=== PATIENT | female | born 1980 | race Caucasian/White ===

== ENCOUNTER 2017-08-03 14:23 | Inpatient (IN) ==
[2017-08-03] MEDS ORDERED: ASPIRIN CHEWABLE PO STA ×2 (14:41→14:46)
[2017-08-03] MEDS ORDERED: POTASSIUM CHLORIDE PREMIX RUN 10 MEQ in PREMIX 100 ML WATER 1 BAG IV STA (15:38)
--- NOTE | 2017-08-03 15:45 | ED.PDOC ---
General ED Provider: Dr. SMILEY JUARES Chief Complaint: Chest Pain Stated Complaint: CHEST PAIN Time Seen by Physician: 14:30 (RIGHT SIDED CHEST PAIN ) Mode of Arrival: Walk-In Information Source: Patient Exam Limitations: No limitations Primary Care Provider: BEE MONTENEGRO Nursing and Triage Documentation Reviewed and Agree: Yes Reviewed sepsis parameters & appropriate labs ordered?: Yes System Inflammatory Response Syndrome: Not Applicable Sepsis Protocol: For patient's 13 years and over: Temp is 96.8 and below OR 101 and greater Pulse >90 BPM Resp >20/minute Acutely Altered Mental Status Are patient's symptoms suggestive of a new infection, such as: -Pneumonia -Skin, Soft Tissue -Endocarditis -UTI -Bone, Joint Infection -Implantable Device -Acute Abdominal Infection -Wound Infection -Meningitis -Blood Stream Catheter Infection -Unknown System Inflammatory Response Syndrome: Not Applicable Cardiovascular Complaint Exam - Chest Pain Complaint/Exam Onset: Sudden Duration: THIS MORNING Symptoms Are: Still present Length of Chest Pain Episodes: 30 MIN Initial Severity: Moderate Current Severity: None Location: Reports: Discrete, Right anterior Pain Radiates: Reports: None Character: Reports: Dull Aggravating: Reports: None Alleviating: Reports: None Associated Signs and Symptoms: Denies: Diaphoresis, Nausea, Vomiting, Fever, Palpitations, Cough, Hemoptysis, Back pain, Abdominal pain, Dizziness, Short of air, Calf pain, Calf swelling Related History: Reports: Similar episode Related Surgical History: Reports: None History of Healthcare-Acquired Pneumonia: Reports: No AMI/ACS Risk Factors: Reports: None TAD Risk Factors: Reports: None Pulmonary Embolism Risk Factors: Reports: None Prior Care for this Complaint: No Recent Stress Test: No Recent Echo/LV Function: No JVD Present: No Subcutaneous Emphysema Present: No Diminshed Breath Sounds: No Reproducible Chest Wall Pain: No Bilateral Pulses Present: No Unequal Pulses Noted: No If Risk Factors for AMI/ACS Consider: EKG, Cardiac Enzymes Differential Diagnoses: GI Diseasae, Lower Resp. Infection Quality Indicators For Acute CT or Cardiac Chest Pain: EKG in 10min. Quality Indicator For Non-Traumatic Chest Pain/Syncope: EKG Performed Review of Systems - Review Of Systems Constitutional: Reports: No symptoms Eyes: Reports: No symptoms Ears, Nose, Mouth, Throat: Reports: No symptoms Respiratory: Reports: No symptoms Cardiac: Reports: Chest pain GI: Reports: No symptoms : Reports: No symptoms Musculoskeletal: Reports: No symptoms Skin: Reports: No symptoms Neurological: Reports: No symptoms Endocrine: Reports: No symptoms Hematologic/Lymphatic: Reports: No symptoms All Other Systems: Reviewed and Negative Past Medical History - Past Medical History Previously Healthy: Yes Endocrine: Reports: Hypothyroid Cardiovascular: Reports: None Respiratory: Reports: None Hematological: Reports: None Gastrointestinal: Reports: None Genitourinary: Reports: None Neuro/Psych: Reports: None Musculoskeletal: Reports: None Cancer: Reports: None Last Menstrual Period: 2016 - Surgical History General Surgical History: Reports: None - Family History Family History: Reports: None - Social History Smoking Status: Current some day smoker, Light tobacco smoker Hx Substance Use: No Alcohol Screening: Occasionally Physical Exam - Physical Exam Appearance: Well-appearing, No pain distress, Well-nourished Ill-appearing: Mild Pain Distress: Mild Eyes: AMANDA, EOMI, Conjunctiva clear ENT: Ears normal, Nose normal, Oropharynx normal Respiratory: Airway patent, Breath sounds clear, Breath sounds equal, Respirations nonlabored Cardiovascular: RRR, Pulses normal, No rub, No murmur GI/: Soft, Nontender, No masses, Bowel sounds normal, No Organomegaly Musculoskeletal: Normal strength, ROM intact, No edema, No calf tenderness Skin: Warm, Dry, Normal color Neurological: Sensation intact, Motor intact, Reflexes intact, Cranial nerves intact, Alert, Oriented Psychiatric: Affect appropriate, Mood appropriate Interpretation - Treasury Associate Rate: Normal Rhythm: Sinus Ectopy: None - EKG Interpretation Rate: Normal Rhythm: Sinus Ectopy: None [place]: NL ST Segment: Normal Physician Notification - Case Discussed Physician Notified: PAUL Time of Notification: 16:00 Critical Care Note - Critical Care Note Total Time (mins): 0 Course - Course Hematology/Chemistry: 08/04/17 04:15 08/04/17 04:15 Orders, Labs, Meds: Lab Review 08/03/17 08/03/17 08/03/17 14:55 14:55 14:55 WBC 5.44 RBC 4.23 Hgb 12.7 Hct 36.0 L MCV 85.1 MCH 30.0 MCHC 35.3 RDW Coeff of Yocasta 13.4 Plt Count 208 Immature Gran % (Auto) 0.4 Neut % (Auto) 46.7 Lymph % (Auto) 39.0 [place] % (Auto) 11.8 H Eos % (Auto) 1.5 Baso % (Auto) 0.6 Immature Gran # (Auto) 0.0 Neut # 2.6 Lymph # 2.1 [place] # 0.6 Eos # 0.1 Baso # 0.0 D-Dimer (Manual) Sodium 144 Potassium 2.7 L* Chloride 112 H Carbon Dioxide 24 Anion Gap 10.7 BUN 8 Creatinine 0.64 Estimated GFR (MDRD) 103.00 BUN/Creatinine Ratio 12.50 Glucose 97 Calcium 8.8 Magnesium 2.1 Total Bilirubin 0.5 AST 8 L ALT < 6 L Alkaline Phosphatase 83 Total Creatine Kinase 14 Troponin I < 0.0100 Total Protein 6.4 Albumin 3.7 Globulin 2.7 Albumin/Globulin Ratio 1.37 TSH 1.000 Free T4 1.08 Serum , Qual 08/03/17 08/03/17 14:55 14:55 WBC RBC Hgb Hct MCV MCH MCHC RDW Coeff of Yocasta Plt Count Immature Gran % (Auto) Neut % (Auto) Lymph % (Auto) [place] % (Auto) Eos % (Auto) Baso % (Auto) Immature Gran # (Auto) Neut # Lymph # [place] # Eos # Baso # D-Dimer (Manual) 302.65 Sodium Potassium Chloride Carbon Dioxide Anion Gap BUN Creatinine Estimated GFR (MDRD) BUN/Creatinine Ratio Glucose Calcium Magnesium Total Bilirubin AST ALT Alkaline Phosphatase Total Creatine Kinase Troponin I Total Protein Albumin Globulin Albumin/Globulin Ratio TSH Free T4 Serum , Qual Negative Orders Category Date Time Status EKG-(ED ONLY) Stat CARDIO 08/03/17 14:45 Completed CBC W/ AUTO DIFF Stat LAB 08/03/17 14:55 Completed COMPREHENSIVE METABOLIC PANEL Stat LAB 08/03/17 14:55 Completed CREATINE KINASE Stat LAB 08/03/17 14:55 Completed D-DIMER Stat LAB 08/03/17 14:55 Completed FREE T4 (FREE THYROXINE) Stat LAB 08/03/17 14:55 Completed MAGNESIUM Stat LAB 08/03/17 14:55 Completed SERUM Stat LAB 08/03/17 14:55 Completed THYROID STIMULATING HORMONE Stat LAB 08/03/17 14:55 Completed TROPONIN I Stat LAB 08/03/17 14:55 Completed Aspirin [Aspirin Chewable] MEDS 08/03/17 14:46 Discontinued 324 mg PO ONCE STA Potassium Chloride [Potassium Chloride Premix Run] 10 MEDS 08/03/17 15:38 Discontinued meq Premix 100 ml Water 1 bag IV ONCE Potassium Chloride [Potassium Chloride Premix Run] 100 MEDS 08/03/17 16:50 Discontinued ml IV .STK-MED CHEST, 2 VIEWS PA & LAT Stat RADS 08/03/17 14:44 Completed Medications Discontinued Medications Generic Name Dose Route Start Last Admin Trade Name Rajesh PRN Reason Stop Dose Admin Aspirin 324 mg 08/03/17 14:46 08/03/17 15:06 Aspirin Chewable PO 08/03/17 14:47 324 mg ONCE STA Administration Potassium Chloride 10 meq/ 100 mls @ 100 mls/hr 08/03/17 15:38 08/03/17 17:21 Sterile Water IV 08/03/17 16:37 100 mls/hr ONCE STA Administration Potassium Chloride 40 meq/ 1,000 mls @ 167 mls/hr 08/03/17 17:47 08/04/17 06: 54 Sodium Chloride IV 08/03/17 23:46 Not Given ONCE ONE Potassium Chloride 40 meq 08/03/17 18:59 08/03/17 19:25 K-Dur PO 08/03/17 19:00 40 meq ONCE STA Administration Potassium Chloride 40 meq 08/03/17 22:00 08/03/17 22:22 K-Dur PO 08/03/17 22:01 40 meq ONCE ONE Administration Potassium Chloride 40 meq 08/04/17 08:00 08/04/17 08:54 K-Dur PO 40 meq BIDWM JAMAAL Administration Sodium Chloride 1 syr 08/04/17 13:00 Saline Flush IVF Q8HR JAMAAL Vital Signs: Temp Pulse Resp BP Pulse Ox 08/03/17 14:24 97.4 F L 94 H 20 143/88 H 98 GABRIELA Risk Score GABRIELA Risk Score: Risk Score Odds of by 30D 0 0.1 (0.1-0.2) 1 0.3 (0.2-0.3) 2 0.4 (0.3-0.5) 3 0.7 (0.6-0.9) 4 1.2 (1.0-1.5) 5 2.2 (1.9-2.6) 6 3.0 (2.5-3.6) 7 4.8 (3.8-6.1) Departure - Departure Time of Disposition: 04:20 Disposition: ADMITTED INPATIENT Discharge Problem: Chest pain, Hypokalemia Condition: Good Pt referred to PMD for follow-up: Yes IPMP verified?: Yes Allergies/Adverse Reactions: Allergies No Known Allergies Allergy (Unverified 08/03/17 14:30) Home Medications: Ambulatory Orders Levothyroxine Sodium [Synthroid] 200 mcg PO DAILY 08/03/17 Medroxyprogesterone Acetate [Depo-Provera] 150 mg IM DIRECTED 08/03/17 Disposition Discussed With: Patient
--- NOTE | 2017-08-03 16:13 | DI ---
EXAM: CHEST FRONTAL AND LATERAL VIEWS HISTORY: Chest pain. COMPARISON: 06/23/2017 FINDINGS: Heart size remains within normal limits. There are scattered calcifications suggesting old granulomatous disease. Mild hyperinflation. No acute infiltrates are seen. No vascular congestion. There is no consolidation, visible pleural fluid or pneumothorax. Bones reveal no acute fracture. IMPRESSION: No acute cardiopulmonary process.
[2017-08-03] MEDS ORDERED: POTASSIUM CHLORIDE PREMIX RUN 100 ML IV ONE (16:50)
[2017-08-03] MEDS: POTASSIUM CHLORIDE 40 MEQ VIAL-ADDITIVE ONLY IV ONE ×2 (17:24→17:57)
[2017-08-03] MEDS ORDERED: SODIUM CHLORIDE IV ONE (17:47)
[2017-08-03] MEDS ORDERED: POTASSIUM CHLORIDE IV ONE (17:47)
[2017-08-03] MEDS ORDERED: ADDITIVE ONLY IV ONE (17:47)
[2017-08-03 18:40] VITALS: BMI 24.1
[2017-08-03] MEDS ORDERED: K-DUR PO STA (18:59)
[2017-08-03] MEDS ORDERED: K-DUR PO ONE (22:00)
[2017-08-04] MEDS ORDERED: SODIUM CHLORIDE 1,000 ML IV ONE (06:54)
[2017-08-04] MEDS ORDERED: K-DUR PO SCH (08:00)
--- NOTE | 2017-08-04 08:49 | STRESSECHO ---
Date of Test: 08/04/17 Reason for Exam: CHEST PAIN, HYPOKALEMIA Ordering Physician: DR. RANDOLPH ENAMORADO Current Medications: DEPO-PROVERA, SYNTHROID, K DUR Physical Findings: S1, S2, NO S3 Resting EKG: SINUS RHYTHM/ NO ACUTE CHANGES Target Heart Rate: 153/181 STAGE MPH/GRADE HEART RATE BPM BLOOD PRESSURE mmhg RHYTHM S-T SEGMENT +/- UP DOWN SYMPTOMS,COMMENTS At Rest 55 108/78 SR X NONE 1 1.7/10% 123 118/64 SR X NONE 2 2.5/12% 3 3.4/14% 4 4.2/16% 5 5.0/18% Immediately after 152 154/60 SR X FATIGUE Durations of Exercise: 5:00 Maximum Heart Rate Reached: 152 Reason for Termination: FATIGUE 3 MINUTES POST EXERCISE: HR 72 BPM, BP 118/62 MMHG, SR, +/-, NO COMMENTS INTERPRETATION: 98% OXYGEN SATURATION ON ROOM AIR AT REST 1. NO EVIDENCE OF ISCHEMIA BY ST-T WAVE 2. NO CHEST PAIN OR CHEST DISCOMFORT 3. BLOOD PRESSURE RESPONSE: NORMAL 4. RARE PAC'S AND PVC'S WITH EXERCISE NORMAL LEFT VENTRICULAR CONTRACTILITY--RESTING AND POST EXERCISE MTDD
--- NOTE | 2017-08-04 08:51 | ECHOSTRESS ---
Date of Exam: 08/04/17 Ordering Physician: DR. RANDOLPH ENAMORADO Reason for Echo: CHEST PAIN, HYPOKALEMIA, STRESS TEST--NO ISCHEMIA M-Mode Normal Adult Results LV Dimensions Normal Adult Results AoV Opening excursions >1.6 LVEDD-base- 3.5-5.8 Ao root dimensions 2.0-3.7 LVESD-base- 3.1-4.6 L. Atrium dimensions 1.9-3.8 Post. Wall thickness 0.8-1.1 IV septum (thickness) 0.7-1.2 Post. Wall excursion 0.72-1.3 Septal motion Systolic motion R. Ventricular cavity 1.5-2.0 LVEF 60% Paradoxical septal wall motion 2-D: NORMAL LEFT VENTRICULAR CONTRACTILITY--RESTING AND POST EXERCISE M-MODE: MV: AV: TV: PV: CHAMBER SIZE: WALL MOTION: NORMAL LEFT VENTRICULAR CONTRACTILITY--RESTING AND POST EXERCISE PERICARDIUM: INTERPRETATION: 1. NORMAL LEFT VENTRICULAR CONTRACTILITY--RESTING AND POST EXERCISE MTDD
[2017-08-04 10:23] VITALS: BP 116/73; TEMP 98.3
--- NOTE | 2017-08-05 09:23 | CONS ---
DATE OF SERVICE: 08/04/17 SUBJECTIVE: 37 year old white female seen on consultation for chest pain. The patient's chest pain was fairly atypical right sided localized unrelated to exertion duration several days. REVIEW OF SYSTEMS: CONSTITUTIONAL: No night sweats. No fatigue, malaise, lethargy. No fever or chills. HEENT: Eyes: No visual changes. No eye pain. No eye discharge. ENT: No runny nose. No epistaxis. No sinus pain. No sore throat. No odynophagia. No ear pain. No congestion. RESPIRATORY: No cough, no congestion. No hemoptysis. CARDIOVASCULAR: No angina symptoms. No CHF symptoms. No atypical chest pain for CAD. No palpitations. No shortness of breath. GASTROINTESTINAL: No abdominal pain. No nausea or vomiting. No diarrhea or constipation. No hematemesis. No hematochezia. GENITOURINARY: No urgency. No frequency. No dysuria. No hematuria. No obstructive symptoms. No discharge. No pain. No significant abnormal bleeding. MUSCULOSKELETAL: No musculoskeletal pain. No joint swelling. No arthritis. NEUROLOGICAL: No headache. No neck pain. No syncope. No seizures. No dizziness. PSYCHIATRIC: Not anxious. No depression. No suicidal thoughts. No homicidal thoughts. SKIN: No rash. No lesions. No wounds. ENDOCRINE: No unexplained weight loss. No weight gain. HEMATOLOGIC/LYMPHATIC: No anemia. No purpura. No petechiae. No prolonged or excessive bleeding. No palpable lymph nodes. PHYSICAL EXAMINATION: GENERAL: The patient is oriented to time, place and person. HEENT: Head normocephalic, atraumatic. Eyes: Extraocular muscles are intact. Pupils are equal, round and reactive to light and accommodation. Ears: No lesions. Nose appeared normal. Throat: No exudate or erythema. NECK: Supple. No JVD, no carotid bruit. No lymphadenopathy or thyromegaly. LUNGS: Clear to auscultation. Percussion note normal. Chest symmetrical. HEART: S1, S2, no S3. No murmurs. No cyanosis or clubbing. No ascites. Pulses: Dorsalis pedis and posterior tibial pulses +1 to +2 both sides. ABDOMEN: Soft. Nontender. Bowel sounds active. No CVA tenderness. No mass felt. EXTREMITIES: No edema. Full range of motion of all extremities, equal. NEUROLOGIC: No focal deficit. Cranial nerves II through XII are grossly intact. No headache, no double vision or headache. SKIN: Not dry. Intact. Turgor - normal. LYMPHATIC: No palpable lymph nodes/no lymphedema. MUSCULOSKELETAL: Normal joints with no swelling. Muscle tone is normal. LABS: EKG sinus rhythm with no acute changes. Telemetry sinus rhythm no ST-T wave change. Cardiac markers are negative. Echocardiogram done which showed normal LV contractility, normal valves. Stress echo showed no evidence of ischemia by ST-T wave and also LV contractility resting and post exercise. The patient had few rare PAC and PVC's with exercise. The patient's lipid profile pending. The patient is an RN. ASSESSMENT: 1. Chest pain seems to be noncardiac RECOMMENDATIONS: 1. Coronary insufficiency and symptoms discussed 2. Non HDL goal would be 100-130. Discussed with the patient 3. Smoking 4. CAD risk factors discussed CONDITION: Stable MTDD
--- NOTE | 2017-08-05 09:25 | CONS ---
Michael Fuentes was seen on consult on 08/04/17: Level 5 MTDD
--- NOTE | 2017-08-11 15:47 | HP ---
CHIEF COMPLAINT: Right upper anterior chest pain. SOURCE OF HISTORY: Patient and emergency room records. Reliability good. HISTORY OF PRESENT ILLNESS: The patient was driving to work when she suddenly experienced pain in the right upper anterior chest and she then reported to work. A coworker, however, noted that she did not look good and she told them that she had chest pain and so she came to the emergency room at [facility]. The patient claimed to have had chest pain before, about two years ago and was informed that the potassium was low. She did tell the emergency room physician with regards to the chest pain related to low potassium and indeed the potassium was low at 2.7. The patient denied any accompanying symptoms such as diaphoresis, nausea, weakness or shortness of breath. She, however, described the chest pain as a heaviness or pressure. The cardiac enzymes were normal and the EKG is unremarkable. The patient, however, was admitted for observation because of the chest pain and should undergo a complete cardiac work-up. The patient was agreeable. PAST PERSONAL HISTORY: The patient is diagnosed with hypothyroidism on medication, anemia, two C-sections and ventilation tubes as a child. She is also on Depo-Provera. 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 She has some pain in the right knee. The patient was diagnosed with idiopathic thrombocytopenic purpura. FAMILY HISTORY: Sister had congestive heart failure. Mother was diagnosed with diabetes mellitus. Other members of the maternal family had COPD. SOCIAL HISTORY: The patient is , but legally . Mother is Vianca Nagel. She smokes and had been gradually decreasing the amount of cigarettes. MEDICATIONS: Prior to this admission consisted of: Dep-Provera 150 grams per cc probably every three months Levothyroxine Sodium 200 mcg daily ALLERGIES: No known drug allergies. PHYSICAL EXAMINATION: GENERAL: We have a 37 year old female seen at the emergency room and subsequently admitted to the hospital for observation and further testing because of recurrent right anterior chest pain described as heaviness. There was some tenderness initially. The patient had a similar episode before and was found to have a low potassium. The patient's work-up in the emergency room was negative for any acute myocardial injury. VITAL SIGNS: On admission had a temperature 97.4, pulse 94, blood pressure 143/ 88, respiratory rate 20, oxygen saturation 98 at room air. 5'6", 150 pounds in the emergency room and weighed 152 on the floor and measured 5'6 1/2". HEAD: Unremarkable. FACE: Symmetrical and equal with no facial weakness. Palpation of the frontal and maxillary sinus areas is negative for any pain under pressure. EYES: Pupils equal/reactive to light about 3 mm in size and round. Conjunctivae not pale. Sclerae not icteric. MOUTH: Unremarkable. THROAT: No inflammation, tumors or exudate. NECK: No masses. No bruit. No tenderness. No rigidity. No jugular venous distention at supine posture. CHEST: Symmetrical and equal with good expansion. BREASTS: Not examined. LUNGS: Breath sounds are heard in both sides, somewhat diminished, but no rales or wheezing. HEART: Audible and regular with good tones. No murmurs. ABDOMEN: Flat, soft with no remarkable tenderness and no guarding. Bowel sounds are active. No masses palpable. LOWER EXTREMITIES: Symmetrical and equal with no tenderness in the calf muscles. The pedal pulses are present on both left and right. UPPER EXTREMITIES: Symmetrical and equal. NOTE: There was no tenderness at the time of my examination of the right upper anterior chest. ASSESSMENT: 1. RIGHT UPPER ANTERIOR CHEST PAIN WITH SENSATION OF PRESSURE, ETIOLOGY UNDETERMINED. RULE OUT MYOCARDIAL ISCHEMIA, EVOLVING MYOCARDIAL INFARCTION 2. HISTORY OF KIKA'S DISEASE-HYPOTHYROIDISM ON REPLACEMENT THERAPY 3. HISTORY OF IDIOPATHIC THROMBOCYTOPENIC PURPURA 4. ON DEPO-PROVERA 5. CHRONIC TOBACCO USE AND ABUSE, PERSISTENT MTDD
--- NOTE | 2017-08-12 08:39 | DS ---
PATIENT IDENTIFICATION: 37 year old female who presented to the emergency room because of recurrent pain in the right upper anterior chest described as pressure. The pain was not accompanied by nausea, diaphoresis or weakness. The pain sudden onset while she was driving. She had a similar episode before and was informed that it was due to a low potassium. HOSPITAL COURSE: The patient's potassium indeed was below normal on the chemistries-2.7. The cardiac enzymes were normal. The EKG showed no acute processes and the chest x- ray was unremarkable. The D-Dimer was normal. The patient was seen by Dr. Fairchild, [employer], in consultation and he preformed a stress echo. The stress test was negative for any ischemia and the echocardiogram was normal with ventricular ejection fraction, left, at 60. A repeat CBC showed no significant changes. The hemoglobin and hematocrit is down somewhat, but this is probably due to hydration, since the patient was given IV fluids. She was given 10 mEq of Potassium 100 cc bag. The IV at 1000 cc or normal saline and 40 mg of potassium. The repeat potassium on the following day is now 3.9 from 2.7. Total protein is down to 5.4 from 6.4. Albumin 3.2 from 3.7. The TSH is 1.00 and the FreeT4 is 1.08. Serum test was negative. The patient was eager to go home. I did see her at noon on 08/04/17. The patient examined with the nurse present. She was alert and responsive and oriented with movement of all extremities and not dyspneic, nor tachypneic and no cyanosis. She denied any chest pain. NECK: No masses and no bruit. CHEST: Clear to auscultation in both sides. HEART: Audible and regular with good tones. No murmurs. ABDOMEN: Soft with no remarkable tenderness. No guarding. Bowel sounds are active. No masses palpable. LOWER EXTREMITIES: No tenderness in the calf muscles. The pedal pulses are present. The patient was advised that the stress test does not show any ischemia or lack of blood in her heart. The echocardiogram showed a normal ejection fraction at 60%. I did inform her that I would not do any further testing. I would leave that to her family provider. I also informed her that she should see her family provider as soon as possible and discuss the case with her. She told me that she would. If she were to have the recurrence of the pain, she should go and see family provider or go to the emergency room. I also informed her that I would not prescribe any potassium supplement. She should eat a banana daily and depending on the size of the banana, that she may obtained anywhere between 10 to 20 meq of potassium. She could also drink tea and maybe the skin of a potato. Again I emphasized that she should go and see her family provider as soon as she can. FINAL DIAGNOSES: 1. CHEST PAIN RIGHT UPPER ANTERIOR CHEST, PROBABLY NONCARDIAC 2. HISTORY OF KIKA'S DISEASE NOW ON REPLACEMENT HORMONE 3. HISTORY OF IDIOPATHIC THROMBOCYTOPENIC PURPURA 4. HISTORY OF 2 C-SECTIONS 5. CHRONIC TOBACCO USE AND ABUSE PERSISTENT NOTE: The patient's platelet count is 208,000. MTDD
== END 2017-08-04 12:20 | disposition home or self-care (01) | DRG 313 ==
LOC: ED 14:23 → MEDSURG B 17:08
PROVIDERS: ADMIT General Practice; ATTEND General Practice
DX: R07.89 Other chest pain (principal); E87.6 Hypokalemia; E06.3 Autoimmune thyroiditis; F17.210 Nicotine dependence, cigarettes, uncomplicated; Z86.2 Personal history of diseases of the blood and blood-forming organs and certain disorders involving the immune mechanism; Z79.3 Long term (current) use of hormonal contraceptives; Z79.899 Other long term (current) drug therapy; Z79.890 Hormone replacement therapy
CPT/HCPCS: 36415; 80053; 82550; 83735; 84439; 84443; 84484; 84703; 85025; 85379; 93005; 93010; 96361; 96365; 99284